=== PATIENT | male | born 1955 | race Caucasian/White ===

== ENCOUNTER → 2024-05-01 11:31 | Outpatient (CLI) | payer MEDICARE, OTHER, SELFPAY ==
--- NOTE | 2024-05-01 11:36 | DI.ECHO.S_ITS ---
[place] [facility] : : [address] : : [place] : : [id number] : : Phone: [phone] Echocardiogram Report + + :Name: JACI WALLACE Study Date: 05/01/2024 Height: 71 in : :[facility] ReadingLocation: Weight: 250 lb : : Gender: Male BSA: 2.3 m2 : :: 1955 Age: 68 yrs BP: 122/89 mmHg: :Reason For Study: PAROXYSMAL ATRIAL FIBRILLATION : :Ordering Physician: DAHIANA CHURCHILL Performed By: Leslie Vivar : :Referring: DAHIANA CHURCHILL : + + Interpretation Summary 1. The left ventricular contractility is normal. Estimate ejection fraction is greater than 60% with no segmental wall motion abnormalities. Borderline concentric LVH. Grade 1 diastolic dysfunction. 2. The right ventricular contractility is normal. 3. All cardiac chambers are of normal size. 4. No significant valvular abnormalities. 5. No obvious intracardiac shunts. 6. No obvious intracardiac masses nor thrombi. 7. No hemodynamically significant pericardial effusion. 8. The aortic root is mildly dilated without obvious dissection. Conclusion: Normal biventricular systolic function with no significant valvular abnormalities. Procedure: A two-dimensional transthoracic echocardiogram with color flow and Doppler was performed. The study quality was technically adequate. There is no prior echocardiogram noted for this patient. The patient was in sinus rhythm with heart rates between 68-75 bpm during the exam. Left Ventricle: The left ventricle is normal in size. There is borderline concentric left ventricular hypertrophy. The ejection fraction is estimated to be 60-65%. Right Ventricle: The right ventricle is normal in size and function. Atria: The left atrial size is normal. Right atrial size is normal. There is no Doppler evidence for an interatrial shunt. Mitral Valve: The mitral valve leaflets appear mildly thickened, but open well. There is trace mitral regurgitation. Aortic Valve: The aortic valve is trileaflet. The aortic valve opens well. There is no aortic valve stenosis. There is trace aortic regurgitation. Tricuspid Valve: The tricuspid valve is normal in structure and function. There is trace tricuspid regurgitation. Right ventricular systolic pressure is estimated to be 24 mmHg plus the clinically estimated CVP which cannot be estimated on this exam. Pulmonic Valve: The pulmonic valve leaflets are thin and pliable; valve motion is normal. There is no pulmonic valvular regurgitation. Great Vessels: The aortic root is mildly dilated. The dimensions of the ascending aorta are normal. The inferior vena cava was not well visualized. Pericardium/ Pleura There is no pericardial effusion. There is no pleural effusion. MMode/2D Measurements & Calculations LVIDd: 5.2 cm LVOT diam: 2.2 cm LVIDs: 3.2 cm Ao root diam: 4.1 cm FS: 38.4 % asc Aorta Diam: 3.2 cm EPSS: 0.60 cm Ao Arch Diam (Prox Trans): 2.8 cm IVSd: 0.97 cm LVPWd: 1.1 cm LV bledsoe. diameter/BSA (cm/m^2): 2.2 LV sys. diameter/BSA (cm/m^2): 1.4 LA A2 area: 14.8 cm2 RA long axis: 5.4 cm LA A4 area: 15.5 cm2 RA area: 15.5 cm2 LA length (vol): 5.4 cm RA vol: 37.6 ml LA vol: 35.7 ml RA : 16.2 ml/m2 LA vol index: 15.4 ml/m2 RVD1 (basal): 3.6 cm TAPSE: 2.4 cm Doppler Measurements & Calculations Ao V2 max: 148.1 cm/sec LVOT Max Elvis: 136.8 cm/sec Ao V2 mean: 111.0 cm/sec LV V1 max P.5 mmHg Ao max P.8 mmHg LV V1 VTI: 27.5 cm Ao mean P.4 mmHg SHIRLEY(I,D): 3.6 cm2 Ao V2 VTI: 28.3 cm SHIRLEY(V,D): 3.5 cm2 sev ratio: 0.97 SHIRLEY indexed to BSA (cm^2/m^2): 1.6 MV E max elvis: 59.7 cm/sec TR max elvis: 244.2 cm/sec MV A max elvis: 70.8 cm/sec TR max P.9 mmHg MV E/A: 0.84 PA V2 max: 148.7 cm/sec Med Peak E' Elvis: 6.6 cm/sec PA V2 mean: 106.2 cm/sec E/E' med: 9.0 PA mean P.9 mmHg Lat Peak E' Elvis: 6.6 cm/sec PA pr(Accel): 43.0 mmHg E/E' lat: 9.1 E/e' average: 9.1 MV dec time: 0.24 sec Pulm A Revs Elvis: 23.5 cm/sec SV(LVOT): 102.8 ml Pulm A Revs Dur: 0.10 sec Reading Physician:
== END ==
LOC: ECHO 11:35
PROVIDERS: Referring Provider Internal Medicine; Visit Provider Internal Medicine
DX: I48.0 Paroxysmal atrial fibrillation (principal); I77.89 Other specified disorders of arteries and arterioles
CPT/HCPCS: 93306

== ENCOUNTER → 2024-05-03 07:37 | Outpatient (CLI) | payer MEDICARE, OTHER, SELFPAY ==
--- NOTE | 2024-05-03 | DI.NM.S_ITS ---
PROCEDURE: NM EXERCISE TREADMILL NON NUC COMPARISON: None. INDICATIONS: Paroxysmal atrial fibrillation FINDINGS: the patient exercised for 6 minutes and 32 seconds, reaching 110% of maximum predicted heart rate, 7.0METs, ELLEN +13%. Resting BP 150/100mmHg, max BP 180/100mmHg. No angina and no diagnostic ST changes during exercise or recovery. Occasional PVCs noted. IMPRESSION: Low risk, normal treadmill ECG only stress test from inducible ischemia standpoint. Mildly reduced exercise capacity (ELLEN +13%). Dictated by: Christine Adler MD on 05/03/2024 at 12:41 Approved by: Christine Adler MD on 05/03/2024 at 12:43
== END ==
PROVIDERS: PCP Nurse Practitioner; Referring Provider Internal Medicine; Visit Provider Internal Medicine
DX: I48.0 Paroxysmal atrial fibrillation (principal)
CPT/HCPCS: 93017

== ENCOUNTER → 2024-05-07 10:41 | Outpatient (CLI) | payer MEDICARE, OTHER, SELFPAY ==
--- NOTE | 2024-05-07 10:42 | DI.CT.S_ITS ---
PROCEDURE: CT CHEST WO CON INDICATIONS: Aneurysm of the ascending aorta, without rupture TECHNIQUE: Noncontrast 5 mm thick sections acquired from the pulmonary apices to the posterior costophrenic angles. 1 mm lung window, 5 mm thick coronal and sagittal and 7 mm axial MIP reformats were then acquired. For radiation dose reduction, the following was used: automated exposure control, adjustment of mA and/or kV according to patient size. COMPARISON: None. FINDINGS: Image quality: Diagnostic. Evaluation of the solid parenchymal organs is limited without IV contrast. Lower Neck: No enlarged lymph nodes. Thyroid: No thyroid nodules which require sonographic follow up, per consensus guidelines. Axillae: No enlarged lymph nodes. Chest Wall: Unremarkable. Bones: No aggressive focal lesion. Lungs and Pleura: No pneumothorax or pleural effusions. No acute airspace opacity. Several small pulmonary nodules. For example: -Left lower lobe pulmonary nodule measuring 0.6 cm, (3/199). -Right lung base pulmonary nodule measuring 0.4 cm, (3/275). Heart: Heart size is normal. Moderate coronary artery calcifications. No pericardial effusion. Thoracic Vessels: The aorta and pulmonary arteries demonstrate normal size. Ascending aorta measures 3.1 cm, (4/55). Descending aorta measures 2.3 cm, (4/79). Atherosclerotic calcification at the aortic arch. Mediastinum and Maritza: No enlarged lymph nodes. Tiny calcified left hilar lymph nodes. Esophagus: No wall thickening. No hiatal hernia. Upper Abdomen: Hepatic steatosis. Calcified granuloma in the spleen. IMPRESSION: 1. No aortic aneurysm. 2. Left lower lobe pulmonary nodule measuring 0.6 cm. -Recommend follow-up CT chest in 6-12 months. 3. Hepatic steatosis. Dictated by: Qamar Esteves M.D. on 05/07/2024 at 17:40 Approved by: Qamar Esteves M.D. on 05/07/2024 at 17:48
== END ==
PROVIDERS: PCP Nurse Practitioner; Referring Provider Internal Medicine; Visit Provider Internal Medicine
DX: I71.21 Aneurysm of the ascending aorta, without rupture (principal); I25.10 Atherosclerotic heart disease of native coronary artery without angina pectoris; R91.8 Other nonspecific abnormal finding of lung field; I70.0 Atherosclerosis of aorta; K76.0 Fatty (change of) liver, not elsewhere classified; K66.8 Other specified disorders of peritoneum
CPT/HCPCS: 71250